=== PATIENT | male | born 1935 | race Caucasian/White ===

== ENCOUNTER 2017-05-22 09:50 | Emergency (ER) | payer MEDICARE, BC ==
[~2017-05-22] VITALS: Ht 180.3 cm; Wt 94.0 kg
[~2017-05-22 09:50] MED LIST: ASPI-845 PO; ATOR10TA70 PO; CALC667C5 PO; CARV3.122 PO; FLO0.4C PO; FOLI0.8T19 PO; GABA-530 PO; IPRA3AMP IH; ISOS30TA6 PO; LACT10SO6 PO; LEVO112T5 PO; MULT1TAB74 PO; OMEP10CA4 PO; SENN-161 PO; SEVE800T8 PO; SPIIN IH; TORS20TA3 PO; TRAZ-143 PO
[2017-05-22 11:36] VITALS: BP 147/82
== END 2017-05-22 11:38 | disposition home or self-care (01) ==
LOC: ER 09:51
DX: I13.2 Hypertensive heart and chronic kidney disease with heart failure and with stage 5 chronic kidney disease, or end stage renal disease (principal); N18.6 End stage renal disease; I50.9 Heart failure, unspecified; T83.9XXA Unspecified complication of genitourinary prosthetic device, implant and graft, initial encounter; J44.9 Chronic obstructive pulmonary disease, unspecified; Z79.82 Long term (current) use of aspirin
CPT/HCPCS: 99284

== ENCOUNTER 2017-09-08 11:08 | Inpatient (IN) | payer MEDICARE, BC ==
[~2017-09-08] VITALS: Ht 180.3 cm; Wt 91.0 kg
[2017-09-08 11:43] LABS: BASOPHILS % (AUTO) 0.2 % (0-1); EOSINOPHILS # (AUTO) 0.5 X10'3 (0-0.9); EOSINOPHILS % (AUTO) 5.8 % (0-6); HEMOGLOBIN 11.3 g/dl (14.0-17.9); LYMPHOCYTES # (AUTO) 0.7 X10'3 (1.1-4.8); LYMPHOCYTES % (AUTO) 7.9 % (21-51); MEAN CORPUSCULAR HEMOGLOBIN 32.9 PG (27.0-31.0); MEAN CORPUSCULAR HGB CONC 33.3 % (33.0-36.5); MEAN CORPUSCULAR VOLUME 98.7 FL (78-98); MEAN PLATELET VOLUME 6.2 FL (7.4-10.4); MONOCYTES # (AUTO) 0.5 X10'3 (0-0.9); MONOCYTES % (AUTO) 6.3 % (2-12); NEUTROPHILS % (AUTO) 79.8 % (42-75); PLATELET COUNT 283 X10'3 (140-440); RED BLOOD COUNT 3.45 X10'6 (4.70-6.10); RED CELL DISTRIBUTION WIDTH 14.8 % (11.5-14.5); WHITE BLOOD COUNT 8.7 X10'3 (4.5-11.0)
[2017-09-08 11:53] LABS: PARTIAL THROMBOPLASTIN TIME 33 SECONDS (22-32); PROTHROMBIN TIME 10.3 SECONDS (9.0-12.0)
[2017-09-08 12:05] LABS: ALANINE AMINOTRANSFERASE 17 U/L (12-78); ALBUMIN 3.1 G/DL (3.4-5.0); ALBUMIN/GLOBULIN RATIO 0.7 (1.1-1.5); ALKALINE PHOSPHATASE 55 IU/L (46-116); ANION GAP 12 (8-16); ASPARTATE AMINO TRANSFERASE 16 U/L (10-37); BILIRUBIN,TOTAL 0.3 MG/DL (0.1-1.0); BLOOD UREA NITROGEN 38 MG/DL (7-18); BUN/CREATININE RATIO 7.6 (5.4-32.0); CALCIUM 8.4 MG/DL (8.5-10.1); CHLORIDE 98 MMOL/L (99-107); CREATININE 4.98 MG/DL (0.60-1.10); GLUCOSE 90 MG/DL (70-104); POTASSIUM 4.8 MMOL/L (3.5-5.1); SODIUM 136 MMOL/L (135-145); TOTAL CARBON DIOXIDE 26.1 MMOL/L (24-32); TOTAL PROTEIN 7.6 G/DL (6.4-8.2); TROPONIN I < 0.04 NG/ML (0.0-0.05); eGFR 11 ML/MIN
[2017-09-08 14:08] LABS: CLARITY,URINE CLOUDY (Clear); COLOR,URINE YELLOW (Yellow); GLUCOSE, URINE NEGATIVE (Neg); KETONES,URINE NEGATIVE (Neg); LEUKOCYTE ESTERASE ,URINE LARGE (Neg); NITRITES, URINE NEGATIVE (Neg); OCCULT BLOOD,URINE NEGATIVE (Neg); PH,URINE 7.5 (4.8-8.0); PROTEIN,URINE 100 mg/dl (Neg); UROBILINOGEN,URINE 0.2 E.U/dL (0.2-1.0)
[2017-09-08 14:13] LABS: UA COLLECTION TYPE STRAIGHT CATH
[2017-09-08 14:14] LABS: BACTERIA,URINE 4+ /HPF (Neg); MUCUS STRANDS NONE SEEN /LPF (Neg); RBC,URINE NONE SEEN /HPF (0-2); SQUAMOUS EPITHELIAL CELL,UR NONE SEEN /LPF (FEW); WBC,URINE 50-100 /HPF (0-4)
[2017-09-08] MEDS ORDERED: ondansetron/PF 4mg/2ml inj IV PRN (15:20)
[2017-09-08] MEDS ORDERED: acetaminophen 325mg tablet PO PRN (15:20)
[2017-09-08] MEDS ORDERED: mag hydrox/Alum hydrox/simeth 30ml oral suspension PO PRN (15:20)
[2017-09-08 17:50] VITALS: BP 174/76
[2017-09-08] MEDS: calcium acetate 667mg (PhosLO) capsule PO SCH (21:45)
[2017-09-08] MEDS: carVEDilol 3.125mg tablet PO SCH (21:45)
[2017-09-09 02:00] VITALS: BP 116/68
[2017-09-09] MEDS: ipratropium/albuterol 3ml nebule IH SCH ×5 (04:25→20:05)
[2017-09-09 06:00] VITALS: BP 157/63
[2017-09-09 06:36] LABS: BASOPHILS % (AUTO) 0.3 % (0-1); EOSINOPHILS # (AUTO) 0.8 X10'3 (0-0.9); EOSINOPHILS % (AUTO) 10.6 % (0-6); HEMATOCRIT 36.1 % (42.0-52.0); LYMPHOCYTES # (AUTO) 0.7 X10'3 (1.1-4.8); LYMPHOCYTES % (AUTO) 8.8 % (21-51); MEAN CORPUSCULAR HGB CONC 33.2 % (33.0-36.5); MEAN CORPUSCULAR VOLUME 99.4 FL (78-98); MEAN PLATELET VOLUME 6.3 FL (7.4-10.4); MONOCYTES # (AUTO) 0.6 X10'3 (0-0.9); MONOCYTES % (AUTO) 7.4 % (2-12); NEUTROPHILS # (AUTO) 5.8 X10'3 (1.8-7.7); NEUTROPHILS % (AUTO) 72.9 % (42-75); PLATELET COUNT 322 X10'3 (140-440); RED BLOOD COUNT 3.64 X10'6 (4.70-6.10); RED CELL DISTRIBUTION WIDTH 14.5 % (11.5-14.5); WHITE BLOOD COUNT 7.9 X10'3 (4.5-11.0)
[2017-09-09 07:10] LABS: ALANINE AMINOTRANSFERASE 15 U/L (12-78); ALBUMIN 2.7 G/DL (3.4-5.0); ALBUMIN/GLOBULIN RATIO 0.7 (1.1-1.5); ALKALINE PHOSPHATASE 54 IU/L (46-116); ANION GAP 9 (8-16); ASPARTATE AMINO TRANSFERASE 17 U/L (10-37); BILIRUBIN,TOTAL 0.3 MG/DL (0.1-1.0); BLOOD UREA NITROGEN 42 MG/DL (7-18); BUN/CREATININE RATIO 8.2 (5.4-32.0); CALCIUM 8.4 MG/DL (8.5-10.1); CHLORIDE 99 MMOL/L (99-107); CHOLESTEROL 102 MG/DL (0-200); CREATININE 5.12 MG/DL (0.60-1.10); GLUCOSE 82 MG/DL (70-104); HDL CHOLESTEROL 51 MG/DL (35-60); LDL CHOLESTEROL 34 MG/DL (50-100); PHOSPHORUS 5.5 MG/DL (2.3-4.5); SODIUM 137 MMOL/L (135-145); TOTAL CARBON DIOXIDE 29.1 MMOL/L (24-32); TOTAL PROTEIN 6.7 G/DL (6.4-8.2); TRIGLYCERIDES 65 MG/DL (20-135); eGFR 11 ML/MIN
[2017-09-09 07:11] LABS: POTASSIUM 5.3 MMOL/L (3.5-5.1)
[2017-09-09] MEDS ORDERED: LIDOcaine 1% (10mg/ml) 2ml vial SQ ONE (08:00)
[2017-09-09] MEDS: calcium acetate 667mg (PhosLO) capsule PO SCH ×3 (08:00→18:29)
[2017-09-09] MEDS ORDERED: epoetin 20,000 units/ml inj IV ONE ×2 (08:00→11:30)
[2017-09-09] MEDS ORDERED: normal saline 1000ml 250 ML IV PRN (08:00)
[2017-09-09] MEDS ORDERED: normal saline 1000ml 100 ML IV PRN (08:00)
[2017-09-09 10:00] VITALS: BP 149/63
[2017-09-09] MEDS ORDERED: heparin 1,000unit/ml 10ml vial 10 ML IV ONE (11:26)
[2017-09-09] MEDS ORDERED: albumin (human) 25% 100ml IV 100 ML IV PRN (11:30)
[2017-09-09] MEDS: folic acid/vitamin B complex w/vitamin C 0.8mg tablet PO SCH (11:33)
[2017-09-09] MEDS: levoTHYROXINE 112mcg tablet PO SCH (11:33)
[2017-09-09] MEDS: carVEDilol 3.125mg tablet PO SCH ×2 (11:33→19:57)
[2017-09-09] MEDS: aspirin 325mg tablet, delayed-release (Ecotrin) PO SCH (11:33)
[2017-09-09] MEDS: atorvastatin 10mg tablet PO SCH (11:34)
[2017-09-09] MEDS: isosorbide mononitrate 30mg tab.SR.24H PO SCH (11:41)
[2017-09-09] MEDS: pantoprazole 40 MG vial IV SCH (12:48)
[2017-09-09] MEDS ORDERED: VALA100027 (13:41)
[2017-09-09 18:00] VITALS: BP 128/58
[2017-09-09 23:00] VITALS: BP 153/45
[2017-09-10 02:00] VITALS: BP 150/57
[2017-09-10 05:52] LABS: BASOPHILS % (AUTO) 0.3 % (0-1); EOSINOPHILS # (AUTO) 0.7 X10'3 (0-0.9); EOSINOPHILS % (AUTO) 9.5 % (0-6); HEMATOCRIT 33.3 % (42.0-52.0); HEMOGLOBIN 10.9 g/dl (14.0-17.9); LYMPHOCYTES # (AUTO) 0.8 X10'3 (1.1-4.8); LYMPHOCYTES % (AUTO) 9.7 % (21-51); MEAN CORPUSCULAR HEMOGLOBIN 32.3 PG (27.0-31.0); MEAN CORPUSCULAR HGB CONC 32.8 % (33.0-36.5); MEAN CORPUSCULAR VOLUME 98.5 FL (78-98); MEAN PLATELET VOLUME 6.4 FL (7.4-10.4); MONOCYTES # (AUTO) 0.6 X10'3 (0-0.9); MONOCYTES % (AUTO) 8.2 % (2-12); NEUTROPHILS # (AUTO) 5.7 X10'3 (1.8-7.7); NEUTROPHILS % (AUTO) 72.3 % (42-75); PLATELET COUNT 316 X10'3 (140-440); RED BLOOD COUNT 3.38 X10'6 (4.70-6.10); RED CELL DISTRIBUTION WIDTH 14.6 % (11.5-14.5); WHITE BLOOD COUNT 7.9 X10'3 (4.5-11.0)
[2017-09-10 06:00] VITALS: BP 145/53
[2017-09-10 06:13] LABS: ALANINE AMINOTRANSFERASE 15 U/L (12-78); ALBUMIN 2.6 G/DL (3.4-5.0); ALBUMIN/GLOBULIN RATIO 0.7 (1.1-1.5); ALKALINE PHOSPHATASE 48 IU/L (46-116); ANION GAP 6 (8-16); BILIRUBIN,TOTAL 0.4 MG/DL (0.1-1.0); BLOOD UREA NITROGEN 29 MG/DL (7-18); BUN/CREATININE RATIO 7.3 (5.4-32.0); CALCIUM 8.2 MG/DL (8.5-10.1); CHLORIDE 100 MMOL/L (99-107); CREATININE 3.99 MG/DL (0.60-1.10); GLUCOSE 86 MG/DL (70-104); MAGNESIUM 1.9 MG/DL (1.5-2.4); SODIUM 137 MMOL/L (135-145); TOTAL CARBON DIOXIDE 31.5 MMOL/L (24-32); TOTAL PROTEIN 6.4 G/DL (6.4-8.2); eGFR 14 ML/MIN
[2017-09-10 06:15] LABS: ASPARTATE AMINO TRANSFERASE 21 U/L (10-37); PHOSPHORUS 4.2 MG/DL (2.3-4.5); POTASSIUM 4.6 MMOL/L (3.5-5.1)
[2017-09-10] MEDS ORDERED: piperacillin-tazo 2.25gm/50ml 50 ML IV SCH (08:00)
[2017-09-10] MEDS: isosorbide mononitrate 30mg tab.SR.24H PO SCH (08:00)
[2017-09-10] MEDS: ipratropium/albuterol 3ml nebule IH SCH ×4 (08:00→20:04)
[2017-09-10] MEDS: pantoprazole 40 MG vial IV SCH (09:30)
[2017-09-10] MEDS: carVEDilol 3.125mg tablet PO SCH ×2 (09:31→20:44)
[2017-09-10] MEDS: aspirin 325mg tablet, delayed-release (Ecotrin) PO SCH (09:31)
[2017-09-10] MEDS: calcium acetate 667mg (PhosLO) capsule PO SCH ×3 (09:31→18:50)
[2017-09-10] MEDS: atorvastatin 10mg tablet PO SCH (09:31)
[2017-09-10] MEDS: levoTHYROXINE 112mcg tablet PO SCH (09:31)
[2017-09-10] MEDS: folic acid/vitamin B complex w/vitamin C 0.8mg tablet PO SCH (09:31)
[2017-09-10] MEDS ORDERED: levoFLOXACIN 250mg tablet PO ONE (09:55)
[2017-09-10 10:00] VITALS: BP 155/59
[2017-09-10] MEDS: levoFLOXACIN 250mg tablet PO SCH (13:33)
[2017-09-10] MEDS: magnesium hydroxide 30ml (MOM) UD suspension PO PRN (13:39)
[2017-09-10 18:00] VITALS: BP 175/93
[2017-09-10 23:00] VITALS: BP 164/67
[2017-09-11] VITALS (7 sets, daily range): BP systolic 134–158; BP diastolic 61–76
[2017-09-11] MEDS: magnesium hydroxide 30ml (MOM) UD suspension PO PRN (05:37)
[2017-09-11 06:17] LABS: BASOPHILS % (AUTO) 0.4 % (0-1); EOSINOPHILS # (AUTO) 0.7 X10'3 (0-0.9); EOSINOPHILS % (AUTO) 9.5 % (0-6); HEMATOCRIT 33.7 % (42.0-52.0); HEMOGLOBIN 11.2 g/dl (14.0-17.9); LYMPHOCYTES # (AUTO) 0.9 X10'3 (1.1-4.8); LYMPHOCYTES % (AUTO) 10.9 % (21-51); MEAN CORPUSCULAR HEMOGLOBIN 32.9 PG (27.0-31.0); MEAN CORPUSCULAR HGB CONC 33.2 % (33.0-36.5); MEAN CORPUSCULAR VOLUME 99.1 FL (78-98); MEAN PLATELET VOLUME 6.4 FL (7.4-10.4); MONOCYTES # (AUTO) 0.7 X10'3 (0-0.9); MONOCYTES % (AUTO) 9.5 % (2-12); NEUTROPHILS # (AUTO) 5.5 X10'3 (1.8-7.7); NEUTROPHILS % (AUTO) 69.7 % (42-75); PLATELET COUNT 310 X10'3 (140-440); RED CELL DISTRIBUTION WIDTH 14.4 % (11.5-14.5); WHITE BLOOD COUNT 7.8 X10'3 (4.5-11.0)
[2017-09-11 06:47] LABS: ALANINE AMINOTRANSFERASE 15 U/L (12-78); ALBUMIN 2.7 G/DL (3.4-5.0); ALBUMIN/GLOBULIN RATIO 0.7 (1.1-1.5); ALKALINE PHOSPHATASE 46 IU/L (46-116); ANION GAP 8 (8-16); ASPARTATE AMINO TRANSFERASE 16 U/L (10-37); BILIRUBIN,TOTAL 0.3 MG/DL (0.1-1.0); BLOOD UREA NITROGEN 43 MG/DL (7-18); CALCIUM 8.3 MG/DL (8.5-10.1); CHLORIDE 99 MMOL/L (99-107); CREATININE 4.76 MG/DL (0.60-1.10); GLUCOSE 88 MG/DL (70-104); MAGNESIUM 2.3 MG/DL (1.5-2.4); PHOSPHORUS 4.1 MG/DL (2.3-4.5); POTASSIUM 4.8 MMOL/L (3.5-5.1); SODIUM 135 MMOL/L (135-145); TOTAL CARBON DIOXIDE 28.4 MMOL/L (24-32); TOTAL PROTEIN 6.6 G/DL (6.4-8.2); eGFR 12 ML/MIN
[2017-09-11] MEDS ORDERED: heparin 1,000 units/ml 10ml inj IV ONE (08:00)
[2017-09-11] MEDS ORDERED: epoetin 20,000 units/ml inj IV ONE (08:00)
[2017-09-11] MEDS ORDERED: albumin (human) 25% 100ml IV 100 ML IV PRN (08:00)
[2017-09-11] MEDS ORDERED: heparin 1,000unit/ml 10ml vial 10 ML IV ONE (08:00)
[2017-09-11] MEDS: aspirin 325mg tablet, delayed-release (Ecotrin) PO SCH (08:32)
[2017-09-11] MEDS: levoTHYROXINE 112mcg tablet PO SCH (08:32)
[2017-09-11] MEDS: pantoprazole 40mg Tablet.DR PO SCH (08:32)
[2017-09-11] MEDS: folic acid/vitamin B complex w/vitamin C 0.8mg tablet PO SCH (08:32)
[2017-09-11] MEDS: calcium acetate 667mg (PhosLO) capsule PO SCH ×3 (08:32→18:42)
[2017-09-11] MEDS: isosorbide mononitrate 30mg tab.SR.24H PO SCH (08:32)
[2017-09-11] MEDS: carVEDilol 3.125mg tablet PO SCH ×2 (08:32→18:42)
[2017-09-11] MEDS: atorvastatin 10mg tablet PO SCH (08:32)
[2017-09-11] MEDS: ipratropium/albuterol 3ml nebule IH SCH ×4 (09:12→22:48)
[2017-09-11] MEDS ORDERED: LIDOcaine 1% (10mg/ml) 2ml vial SQ ONE (09:35)
[2017-09-11] MEDS: lactobacillus rhamnosus 10,000 MMU CELLS/CAPSULE PO SCH (18:42)
[2017-09-12] MEDS ORDERED: diphenhydrAMINE 50 mg/ml inj IV ONE
[2017-09-12 05:42] LABS: BASOPHILS % (AUTO) 0.4 % (0-1); EOSINOPHILS # (AUTO) 0.7 X10'3 (0-0.9); EOSINOPHILS % (AUTO) 8.1 % (0-6); HEMATOCRIT 34.6 % (42.0-52.0); HEMOGLOBIN 11.6 g/dl (14.0-17.9); LYMPHOCYTES # (AUTO) 0.9 X10'3 (1.1-4.8); LYMPHOCYTES % (AUTO) 9.9 % (21-51); MEAN CORPUSCULAR HGB CONC 33.5 % (33.0-36.5); MEAN CORPUSCULAR VOLUME 98.6 FL (78-98); MEAN PLATELET VOLUME 6.5 FL (7.4-10.4); MONOCYTES # (AUTO) 0.8 X10'3 (0-0.9); MONOCYTES % (AUTO) 8.9 % (2-12); NEUTROPHILS # (AUTO) 6.7 X10'3 (1.8-7.7); NEUTROPHILS % (AUTO) 72.7 % (42-75); PLATELET COUNT 300 X10'3 (140-440); RED BLOOD COUNT 3.51 X10'6 (4.70-6.10); RED CELL DISTRIBUTION WIDTH 14.4 % (11.5-14.5); WHITE BLOOD COUNT 9.2 X10'3 (4.5-11.0)
[2017-09-12 06:00] VITALS: BP 146/60
[2017-09-12 06:11] LABS: ALANINE AMINOTRANSFERASE 16 U/L (12-78); ALBUMIN 2.9 G/DL (3.4-5.0); ALBUMIN/GLOBULIN RATIO 0.7 (1.1-1.5); ALKALINE PHOSPHATASE 48 IU/L (46-116); ANION GAP 7 (8-16); ASPARTATE AMINO TRANSFERASE 16 U/L (10-37); BILIRUBIN,TOTAL 0.4 MG/DL (0.1-1.0); BLOOD UREA NITROGEN 30 MG/DL (7-18); BUN/CREATININE RATIO 8.2 (5.4-32.0); CALCIUM 8.6 MG/DL (8.5-10.1); CHLORIDE 99 MMOL/L (99-107); CREATININE 3.67 MG/DL (0.60-1.10); GLUCOSE 85 MG/DL (70-104); MAGNESIUM 2.3 MG/DL (1.5-2.4); PHOSPHORUS 3.6 MG/DL (2.3-4.5); POTASSIUM 4.4 MMOL/L (3.5-5.1); SODIUM 137 MMOL/L (135-145); TOTAL CARBON DIOXIDE 31.5 MMOL/L (24-32); TOTAL PROTEIN 6.8 G/DL (6.4-8.2); eGFR 16 ML/MIN
[2017-09-12 06:57] VITALS: BP 167/66
[2017-09-12] MEDS: ipratropium/albuterol 3ml nebule IH SCH ×2 (08:00→11:47)
[2017-09-12] MEDS: lactobacillus rhamnosus 10,000 MMU CELLS/CAPSULE PO SCH (08:07)
[2017-09-12] MEDS: carVEDilol 3.125mg tablet PO SCH (08:08)
[2017-09-12] MEDS: pantoprazole 40mg Tablet.DR PO SCH (08:09)
[2017-09-12] MEDS: folic acid/vitamin B complex w/vitamin C 0.8mg tablet PO SCH (08:09)
[2017-09-12] MEDS: levoTHYROXINE 112mcg tablet PO SCH (08:10)
[2017-09-12] MEDS: calcium acetate 667mg (PhosLO) capsule PO SCH (08:10)
[2017-09-12] MEDS: aspirin 325mg tablet, delayed-release (Ecotrin) PO SCH (08:10)
[2017-09-12] MEDS: atorvastatin 10mg tablet PO SCH (08:11)
[2017-09-12] MEDS: isosorbide mononitrate 30mg tab.SR.24H PO SCH (08:11)
[2017-09-12] MEDS ORDERED: LEVO250T58 PO (09:23)
[2017-09-12] MEDS ORDERED: COR3.125T PO (09:23)
[2017-09-12] MEDS ORDERED: CLOP75TA15 PO (09:24)
[2017-09-12] MEDS ORDERED: clopidogrel 75mg tablet PO SCH (09:25)
[2017-09-12 10:00] VITALS: BP 162/70
[2017-09-12] MEDS: levoFLOXACIN 250mg tablet PO SCH (10:52)
== END 2017-09-12 12:40 | disposition home or self-care (01) | DRG 64 ==
LOC: ER 11:09 → ED HOLD 15:18 → ORTHO 4S 17:45
PROVIDERS: ATTEND Internal Medicine Critical Care Medicine
PROC: 5A1D70Z Performance of Urinary Filtration, Intermittent, Less than 6 Hours Per Day (ICD-10-PCS; principal; 2017-09-09)
PROC: 5A1D70Z Performance of Urinary Filtration, Intermittent, Less than 6 Hours Per Day (ICD-10-PCS; 2017-09-11)
DX: I63.9 Cerebral infarction, unspecified (principal); N18.6 End stage renal disease; I13.2 Hypertensive heart and chronic kidney disease with heart failure and with stage 5 chronic kidney disease, or end stage renal disease; J44.9 Chronic obstructive pulmonary disease, unspecified; N39.0 Urinary tract infection, site not specified; I50.9 Heart failure, unspecified; Z16.12 Extended spectrum beta lactamase (ESBL) resistance; W18.39XA Other fall on same level, initial encounter; Z99.2 Dependence on renal dialysis; Z79.82 Long term (current) use of aspirin; Z79.899 Other long term (current) drug therapy; Z80.9 Family history of malignant neoplasm, unspecified; Y92.89 Other specified places as the place of occurrence of the external cause; Y93.01 Activity, walking, marching and hiking; Y99.8 Other external cause status
CPT/HCPCS: 36415; 70450; 70551; 71045; 80053; 80061; 81001; 82948; 83735; 84100; 84443; 84484; 85025; 85610; 85730; 87070; 87077; 87088; 87186; 92507; 92616; 93005; 93308; 93880; 94640; 94760; 97116; 97162; 97530; 99285; A4353; A6402; C9113; G0257; J0885; J1200; J1644; J2543; J3490; J7030

== ENCOUNTER 2017-11-13 10:53 | Day surgery (SDC) | payer MEDICARE, BC ==
[~2017-11-13] VITALS: Ht 175.3 cm; Wt 92.1 kg
[2017-11-13] VITALS (7 sets, daily range): BP systolic 132–152; BP diastolic 63–76
[~2017-11-13 10:53] MED LIST changes: -CARV3.122 PO; +CLOP75TA15 PO; +COR3.125T PO; +LEVO250T58 PO; -SEVE800T8 PO; +VALA100027
[2017-11-13] MEDS ORDERED: normal saline 1000ml 1,000 ML IV SCH ×2 (11:15→13:11)
[2017-11-13] MEDS ORDERED: FLO0.4C PO (11:42)
[2017-11-13] MEDS ORDERED: SEVE800T7 PO (11:42)
[2017-11-13 12:39] LABS: BASOPHILS % (AUTO) 0.1 % (0-1); EOSINOPHILS # (AUTO) 1.2 X10'3 (0-0.9); EOSINOPHILS % (AUTO) 12.5 % (0-6); HEMOGLOBIN 12.1 g/dl (14.0-17.9); LYMPHOCYTES # (AUTO) 0.5 X10'3 (1.1-4.8); LYMPHOCYTES % (AUTO) 5.2 % (21-51); MEAN CORPUSCULAR HEMOGLOBIN 33.3 PG (27.0-31.0); MEAN CORPUSCULAR HGB CONC 32.8 % (33.0-36.5); MEAN CORPUSCULAR VOLUME 101.7 FL (78-98); MEAN PLATELET VOLUME 6.4 FL (7.4-10.4); MONOCYTES # (AUTO) 0.9 X10'3 (0-0.9); NEUTROPHILS # (AUTO) 7.3 X10'3 (1.8-7.7); NEUTROPHILS % (AUTO) 73.2 % (42-75); PLATELET COUNT 346 X10'3 (140-440); RED BLOOD COUNT 3.64 X10'6 (4.70-6.10); RED CELL DISTRIBUTION WIDTH 15.6 % (11.5-14.5); WHITE BLOOD COUNT 9.9 X10'3 (4.5-11.0)
[2017-11-13] MEDS ORDERED: midazolam 2 mg/2 ml injection IV PRN (13:15)
[2017-11-13] MEDS ORDERED: LIDOcaine 1%/PF 5ML 10 MG/ML VIAL SQ ONE (13:15)
[2017-11-13] MEDS ORDERED: fentaNYL/PF 50MCG/1 ML 2ML syringe IV PRN (13:15)
[2017-11-13] MEDS ORDERED: heparin 1,000 UNITS/NS 500ml 500 ML ONE (13:43)
[2017-11-13] MEDS ORDERED: midazolam 2 mg/2 ml injection ONE (13:43)
[2017-11-13] MEDS ORDERED: fentaNYL/PF 50MCG/1 ML 2ML syringe ONE ×2 (13:43→14:17)
[2017-11-13] MEDS ORDERED: LIDOcaine 1%/PF 5ML 10 MG/ML VIAL ONE (13:43)
[2017-11-13] MEDS ORDERED: iohexol 300mg/ml 100ml inj. ONE (13:44)
== END 2017-11-13 17:35 | disposition home or self-care (01) ==
LOC: SSTAY O 10:53
PROVIDERS: ATTEND Radiology Diagnostic Radiology
DX: T82.858A Stenosis of other vascular prosthetic devices, implants and grafts, initial encounter (principal); I87.1 Compression of vein; I13.2 Hypertensive heart and chronic kidney disease with heart failure and with stage 5 chronic kidney disease, or end stage renal disease; N18.6 End stage renal disease; I50.9 Heart failure, unspecified; J44.9 Chronic obstructive pulmonary disease, unspecified; E78.5 Hyperlipidemia, unspecified; I45.19 Other right bundle-branch block; G47.33 Obstructive sleep apnea (adult) (pediatric); N40.0 Benign prostatic hyperplasia without lower urinary tract symptoms; Z86.73 Personal history of transient ischemic attack (TIA), and cerebral infarction without residual deficits; Z99.2 Dependence on renal dialysis; Z79.2 Long term (current) use of antibiotics; Z95.1 Presence of aortocoronary bypass graft; Z79.01 Long term (current) use of anticoagulants; Z87.891 Personal history of nicotine dependence; Z98.41 Cataract extraction status, right eye; Z98.42 Cataract extraction status, left eye; Z79.82 Long term (current) use of aspirin; Z79.891 Long term (current) use of opiate analgesic; Z86.14 Personal history of Methicillin resistant Staphylococcus aureus infection; Z90.79 Acquired absence of other genital organ(s); Z79.899 Other long term (current) drug therapy; Z98.890 Other specified postprocedural states; Y83.2 Surgical operation with anastomosis, bypass or graft as the cause of abnormal reaction of the patient, or of later complication, without mention of misadventure at the time of the procedure; Y92.89 Other specified places as the place of occurrence of the external cause
CPT/HCPCS: 36415; 36903; 85025; 99152; 99153; A6257; C1725; C1769; C1876; C1894; J1644; J2001; J2250; J3010; J7030; Q9967

== ENCOUNTER 2018-06-16 09:48 | Inpatient (IN) | payer MEDICARE, BC | END 2018-06-19 14:15 | disposition home or self-care (01) | LOC: ER 09:48 → ED HOLD 11:11 → PCU 3S 14:00 | DX: J18.9 Pneumonia, unspecified organism (principal); N18.6 End stage renal disease; J96.00 Acute respiratory failure, unspecified whether with hypoxia or hypercapnia; I13.2 Hypertensive heart and chronic kidney disease with heart failure and with stage 5 chronic kidney disease, or end stage renal disease ==

== ENCOUNTER 2018-07-08 15:34 | Emergency (ER) | payer MEDICARE, BC ==
[~2018-07-08] VITALS: Ht 177.8 cm; Wt 100.0 kg
[~2018-07-08 15:34] MED LIST changes: +CARV3.123 PO; -CLOP75TA15 PO; +CLOP75TA33 PO; -COR3.125T PO; -IPRA3AMP IH; +IPRA3AMP31 IH; +IPRA4AER IH; -SENN-161 PO; +SENN-162 PO; +SEVE800T7 PO; +TERA1CAP4 PO; -TORS20TA3 PO; -TRAZ-143 PO; +TRAZ-218 PO; -VALA100027
[2018-07-08 15:52] VITALS: BP 163/77
[2018-07-08] MEDS ORDERED: morphine 4 MG/ML inj SYRINge IV ONE (16:15)
[2018-07-08 16:59] LABS: BASOPHILS % (AUTO) 0 % (0-1); EOSINOPHILS # (AUTO) 0.1 X10'3 (0-0.9); EOSINOPHILS % (AUTO) 1.1 % (0-6); HEMATOCRIT 36.4 % (42.0-52.0); HEMOGLOBIN 11.6 g/dl (14.0-17.9); LYMPHOCYTES # (AUTO) 0.4 X10'3 (1.1-4.8); LYMPHOCYTES % (AUTO) 3.4 % (21-51); MEAN CORPUSCULAR HEMOGLOBIN 33.2 PG (27.0-31.0); MEAN CORPUSCULAR HGB CONC 31.9 g/dL (33.0-36.5); MEAN CORPUSCULAR VOLUME 104.1 FL (78-98); MEAN PLATELET VOLUME 7.1 FL (7.4-10.4); MONOCYTES # (AUTO) 0.5 X10'3 (0-0.9); MONOCYTES % (AUTO) 5.1 % (2-12); NEUTROPHILS # (AUTO) 9.3 X10'3 (1.8-7.7); NEUTROPHILS % (AUTO) 90.4 % (42-75); PLATELET COUNT 275 X10'3 (140-440); RED CELL DISTRIBUTION WIDTH 16.6 % (11.5-14.5); WHITE BLOOD COUNT 10.3 X10'3 (4.5-11.0)
[2018-07-08 17:37] LABS: ALANINE AMINOTRANSFERASE 13 U/L (12-78); ALBUMIN 3.1 G/DL (3.4-5.0); ALBUMIN/GLOBULIN RATIO 0.8 (1.1-1.5); ALKALINE PHOSPHATASE 65 IU/L (46-116); ANION GAP 11 (8-16); ASPARTATE AMINO TRANSFERASE 17 U/L (10-37); BILIRUBIN,TOTAL 0.4 MG/DL (0.1-1.0); BLOOD UREA NITROGEN 58 MG/DL (7-18); BUN/CREATININE RATIO 7.7 (5.4-32.0); CALCIUM 8.2 MG/DL (8.5-10.1); CHLORIDE 96 MMOL/L (99-107); CREATININE 7.53 MG/DL (0.60-1.10); GLUCOSE 88 MG/DL (70-104); SODIUM 133 MMOL/L (135-145); TOTAL CARBON DIOXIDE 26.5 MMOL/L (24-32); TOTAL PROTEIN 7.2 G/DL (6.4-8.2); eGFR 7 ML/MIN
[2018-07-08 17:39] LABS: POTASSIUM 6.2 MMOL/L (3.5-5.1)
--- NOTE | 2018-07-08 17:40 | NUR ---
K 6.2 REPORTED TO BARBARA WATTERS
--- NOTE | 2018-07-08 20:10 | NUR ---
PER BARBARA, NOT GOING TO TREAT THE K OF 6.2. PT GOING TO DIALYSIS TOMORROW.
== END 2018-07-08 21:05 | disposition home or self-care (01) ==
LOC: ER 15:34
DX: S70.01XA Contusion of right hip, initial encounter (principal); I13.2 Hypertensive heart and chronic kidney disease with heart failure and with stage 5 chronic kidney disease, or end stage renal disease; N18.6 End stage renal disease; I50.9 Heart failure, unspecified; J44.9 Chronic obstructive pulmonary disease, unspecified; Z98.890 Other specified postprocedural states; Z79.82 Long term (current) use of aspirin; Z99.2 Dependence on renal dialysis; Z99.81 Dependence on supplemental oxygen; Z79.899 Other long term (current) drug therapy; W07.XXXA Fall from chair, initial encounter; Y93.89 Activity, other specified; Y92.098 Other place in other non-institutional residence as the place of occurrence of the external cause; Y99.9 Unspecified external cause status
CPT/HCPCS: 36415; 71045; 72192; 73502; 73551; 80053; 85025; 86885; 86900; 86901; 93005; 96374; 99284; J2270

== ENCOUNTER 2019-01-30 09:53 | Inpatient (IN) | payer MEDICARE, BC ==
[2019-01-30] VITALS (8 sets, daily range): BP systolic 118–155; BP diastolic 46–90
[~2019-01-30] VITALS: Ht 177.8 cm; Wt 90.1 kg
[~2019-01-30 09:53] MED LIST changes: -IPRA3AMP31 IH; +IPRA3AMP31 NEB; +LACT10SO57 PO; -LACT10SO6 PO; -OMEP10CA4 PO; +OMEP10CA5 PO; -TRAZ-218 PO; +TRAZ-251 PO
[2019-01-30] MEDS ORDERED: heparin 1,000 units/ml 10ml inj IV ONE (10:05)
[2019-01-30] MEDS ORDERED: bisacodyl 10mg suppository rectal RC PRN (10:05)
[2019-01-30] MEDS ORDERED: acetaminophen 325mg tablet PO PRN ×2 (10:05)
[2019-01-30] MEDS ORDERED: heparin 1,000unit/ml 10ml vial 10 ML IV ONE (10:05)
[2019-01-30] MEDS ORDERED: ondansetron/PF 4mg/2ml inj IV PRN (10:05)
[2019-01-30] MEDS ORDERED: albumin (human) 25% 100ml IV 100 ML IV PRN (10:05)
[2019-01-30] MEDS ORDERED: epoetin 20,000 units/ml inj IV ONE (10:05)
--- NOTE | 2019-01-30 11:00 | NUR ---
PT RECEIVED BY WALLACE FROM [facility] AFTER BRIEF STOP THROUGH ER. PT AWAKE AND ALERT, ORIENTED. SATS 98 ON 3L- USES O2 AT HOME ON SAME LITER FLOW. VSS
[2019-01-30 11:21] LABS: BASOPHILS # (AUTO) 0.1 X10'3 (0-0.2); BASOPHILS % (AUTO) 0.7 % (0-1); EOSINOPHILS # (AUTO) 0.1 X10'3 (0-0.9); EOSINOPHILS % (AUTO) 1.4 % (0-6); HEMATOCRIT 33.1 % (42.0-52.0); HEMOGLOBIN 10.6 g/dl (14.0-17.9); LYMPHOCYTES # (AUTO) 0.4 X10'3 (1.1-4.8); LYMPHOCYTES % (AUTO) 4.8 % (21-51); MEAN CORPUSCULAR VOLUME 103.2 FL (78-98); MEAN PLATELET VOLUME 6.5 FL (7.4-10.4); MONOCYTES # (AUTO) 0.5 X10'3 (0-0.9); MONOCYTES % (AUTO) 6.8 % (2-12); NEUTROPHILS # (AUTO) 6.8 X10'3 (1.8-7.7); NEUTROPHILS % (AUTO) 86.3 % (42-75); PLATELET COUNT 197 X10'3 (140-440); RED BLOOD COUNT 3.21 X10'6 (4.70-6.10); RED CELL DISTRIBUTION WIDTH 16.9 % (11.5-14.5); WHITE BLOOD COUNT 7.8 X10'3 (4.5-11.0)
--- NOTE | 2019-01-30 11:30 | NUR ---
DR CLANCY HERE- 3L TAKEN OFF BY NICK, NOW WILL REMOVE MORE.
[2019-01-30 11:33] LABS: PARTIAL THROMBOPLASTIN TIME 33 SECONDS (22-32)
[2019-01-30] MEDS ORDERED: GUAI600T45 PO (11:37)
[2019-01-30] MEDS ORDERED: PHO667C PO (11:37)
[2019-01-30] MEDS ORDERED: METO25TA6 PO (11:37)
[2019-01-30] MEDS ORDERED: VIT1TABL48 PO (11:37)
[2019-01-30] MEDS ORDERED: FURO-149 PO (11:37)
[2019-01-30] MEDS ORDERED: FINA5TAB11 PO (11:37)
[2019-01-30] MEDS ORDERED: ZAR2.5T PO (11:37)
[2019-01-30] MEDS ORDERED: OMEP20TA5 PO (11:37)
[2019-01-30 11:44] LABS: ALANINE AMINOTRANSFERASE 6 U/L (12-78); ALBUMIN 2.8 G/DL (3.4-5.0); ALBUMIN/GLOBULIN RATIO 0.8 (1.1-1.5); ALKALINE PHOSPHATASE 53 IU/L (46-116); ANION GAP 6 (8-16); ASPARTATE AMINO TRANSFERASE 8 U/L (10-37); BILIRUBIN,TOTAL 0.3 MG/DL (0.1-1.0); BLOOD UREA NITROGEN 17 MG/DL (7-18); BUN/CREATININE RATIO 6.1 (5.4-32.0); CHLORIDE 100 MMOL/L (99-107); CREATININE 2.79 MG/DL (0.60-1.10); GLUCOSE 111 MG/DL (70-104); MAGNESIUM 2.1 MG/DL (1.5-2.4); PHOSPHORUS 2.7 MG/DL (2.3-4.5); POTASSIUM 3.9 MMOL/L (3.5-5.1); SODIUM 136 MMOL/L (135-145); TOTAL PROTEIN 6.5 G/DL (6.4-8.2); eGFR 22 ML/MIN
--- NOTE | 2019-01-30 14:59 | NUR ---
PT COMPLETED HD- TAKING OFF 3 LITERS- TOLERATED WELL. ATE LUNCH WELL. DIFFICULTY WITH IV, BUT PICC NURSE PLACED EXTENDED RT ARM
[2019-01-30] MEDS ORDERED: albuterol 2.5 MG/3 ML nebule NEB PRN (15:15)
[2019-01-30] MEDS ORDERED: lactulose 20gm/30ml cup PO PRN (16:00)
[2019-01-30] MEDS ORDERED: guaiFENesin ER 600mg tablet PO PRN (16:00)
--- NOTE | 2019-01-30 17:07 | NUR ---
Patient in room ICU 2044. I have received report from HUMAIRA Disla and had the opportunity to ask questions and assume patient care.
--- NOTE | 2019-01-30 17:13 | NUR ---
Patient arrived to the unit accompanied by SORTING MACHINE OPERATOR. Telemetry monitoring continued, vital signs obtained, belongings placed on bedside dresser, and patient oriented to room and call light. Will continue to monitor.
--- NOTE | 2019-01-30 17:15 | NUR ---
REPORT GIVEN, PT AWAKEN FOR TRANSFER- PT DISORIENTED, IRRITABLE. LOOSE SOUNDING COUGH- ENCOURAGED TO COUGH- DID SO, NOMPRODUCTIVE. REORIENTED. TRANSFERRED BY BED TO 3012B. STOOD AND AMBULATED TO BED- TOLERATED WELL. NO VOID, NO DISCOMFORT- STATES HE DOES VOID AT TIMES.
[2019-01-30] MEDS: calcium acetate 667mg (PhosLO) capsule PO SCH (18:00)
--- NOTE | 2019-01-30 18:17 | NUR ---
Problems reprioritized. Patient report given, questions answered & plan of care reviewed with Kevon GERARDO. Patient stable at transfer of care, resting comfortably in bed.
--- NOTE | 2019-01-30 18:17 | NUR ---
Patient in room PCU 3012B. I have received report from HUMAIRA Arana and had the opportunity to ask questions and assume patient care. Pt is resting comfortably, A&O X 4, explained to pt need to collect urine and sputum.
[2019-01-30] MEDS: ipratropium/albuterol 3ml nebule NEB SCH (20:19)
[2019-01-30] MEDS ORDERED: gabapentin 100mg capsule PO SCH (21:00)
[2019-01-30] MEDS: tamsulosin 0.4mg capsule PO SCH (21:25)
[2019-01-30] MEDS: gabapentin 100mg capsule PO SCH (21:25)
[2019-01-30] MEDS: furosemide 40mg tablet PO SCH (21:25)
[2019-01-30] MEDS: metoprolol tartrate 25mg tablet PO SCH (21:26)
[2019-01-30] MEDS: docusate sod 100mg capsule PO SCH (21:26)
[2019-01-30] MEDS: heparin, porcine 5000 units/ml vial SQ SCH (21:27)
[2019-01-30] MEDS: metolazone 2.5mg tablet PO SCH (21:48)
--- NOTE | 2019-01-31 01:42 | NUR ---
Patient states that he had a past history of diabetes. Consulted with roofing superintendent and she said that Accucheck every 6 hours was not necessary
[2019-01-31 02:00] VITALS: BP 128/52
[2019-01-31 06:00] VITALS: BP 139/50
[2019-01-31 06:19] LABS: BASOPHILS % (AUTO) 0.5 % (0-1); EOSINOPHILS # (AUTO) 0.2 X10'3 (0-0.9); EOSINOPHILS % (AUTO) 2.5 % (0-6); HEMATOCRIT 30.6 % (42.0-52.0); HEMOGLOBIN 9.9 g/dl (14.0-17.9); LYMPHOCYTES # (AUTO) 0.6 X10'3 (1.1-4.8); LYMPHOCYTES % (AUTO) 9.3 % (21-51); MEAN CORPUSCULAR HEMOGLOBIN 33.7 PG (27.0-31.0); MEAN CORPUSCULAR HGB CONC 32.5 g/dL (33.0-36.5); MEAN CORPUSCULAR VOLUME 103.7 FL (78-98); MEAN PLATELET VOLUME 6.7 FL (7.4-10.4); MONOCYTES # (AUTO) 0.6 X10'3 (0-0.9); NEUTROPHILS # (AUTO) 4.9 X10'3 (1.8-7.7); NEUTROPHILS % (AUTO) 78.7 % (42-75); PLATELET COUNT 212 X10'3 (140-440); RED BLOOD COUNT 2.95 X10'6 (4.70-6.10); RED CELL DISTRIBUTION WIDTH 16.9 % (11.5-14.5); WHITE BLOOD COUNT 6.2 X10'3 (4.5-11.0)
--- NOTE | 2019-01-31 06:19 | NUR ---
Problems reprioritized. Patient report given, questions answered & plan of care reviewed with HUMAIRA Villatoro. Pt is awake and in stable condition
--- NOTE | 2019-01-31 06:33 | NUR ---
Patient in room PCU 3012. I have received report from HUMAIRA Lund and had the opportunity to ask questions and assume patient care. Patient is currently sleeping in bed, bed locked and low, call light in reach. Denies acute distress, will continue to monitor.
[2019-01-31 06:56] LABS: ALBUMIN 2.6 G/DL (3.4-5.0); ANION GAP 8 (8-16); BLOOD UREA NITROGEN 32 MG/DL (7-18); BUN/CREATININE RATIO 7.4 (5.4-32.0); CALCIUM 8.4 MG/DL (8.5-10.1); CHLORIDE 100 MMOL/L (99-107); CREATININE 4.31 MG/DL (0.60-1.10); GLUCOSE 80 MG/DL (70-104); MAGNESIUM 2.1 MG/DL (1.5-2.4); PHOSPHORUS 3.9 MG/DL (2.3-4.5); POTASSIUM 4.9 MMOL/L (3.5-5.1); SODIUM 136 MMOL/L (135-145); TOTAL CARBON DIOXIDE 28.3 MMOL/L (24-32); eGFR 13 ML/MIN
[2019-01-31] MEDS: isosorbide mononitrate 30mg tab.SR.24H PO SCH (07:26)
[2019-01-31] MEDS: folic acid/vitamin B complex w/vitamin C 0.8mg tablet PO SCH (07:26)
[2019-01-31] MEDS: furosemide 40mg tablet PO SCH ×2 (07:27→20:31)
[2019-01-31] MEDS: docusate sod 100mg capsule PO SCH ×2 (07:27→20:32)
[2019-01-31] MEDS: aspirin 325mg tablet, delayed-release (Ecotrin) PO SCH (07:27)
[2019-01-31] MEDS: clopidogrel 75mg tablet PO SCH (07:27)
[2019-01-31] MEDS: gabapentin 100mg capsule PO SCH (07:27)
[2019-01-31] MEDS: pantoprazole 40mg Tablet.DR PO SCH (07:28)
[2019-01-31] MEDS: calcium acetate 667mg (PhosLO) capsule PO SCH ×3 (07:34→17:31)
[2019-01-31] MEDS: metolazone 2.5mg tablet PO SCH ×2 (07:34→20:32)
[2019-01-31] MEDS: levoTHYROXINE 112mcg tablet PO SCH (07:34)
[2019-01-31] MEDS: metoprolol tartrate 25mg tablet PO SCH ×2 (07:34→20:34)
[2019-01-31] MEDS: heparin, porcine 5000 units/ml vial SQ SCH ×2 (07:35→20:33)
[2019-01-31] MEDS: ipratropium/albuterol 3ml nebule NEB SCH ×4 (08:12→19:41)
[2019-01-31] MEDS: finasteride 5mg tablet PO SCH (09:23)
[2019-01-31 11:00] VITALS: BP 129/44
[2019-01-31 15:20] VITALS: BP 126/42
[2019-01-31 16:19] LABS: CLARITY,URINE CLEAR (Clear); COLOR,URINE YELLOW (Yellow); GLUCOSE, URINE NEGATIVE (Neg); KETONES,URINE TRACE mg/dl (Neg); LEUKOCYTE ESTERASE ,URINE SMALL (Neg); NITRITES, URINE NEGATIVE (Neg); OCCULT BLOOD,URINE TRACE-INTACT (Neg); PROTEIN,URINE 100 mg/dl (Neg); UROBILINOGEN,URINE 0.2 E.U/dL (0.2-1.0)
[2019-01-31 16:24] LABS: UA COLLECTION TYPE URINAL
[2019-01-31 16:25] LABS: BACTERIA,URINE 1+ /HPF (Neg); MUCUS STRANDS FEW /LPF (Neg); WBC,URINE 30-50 /HPF (0-4)
[2019-01-31 16:26] LABS: SQUAMOUS EPITHELIAL CELL,UR FEW /LPF (FEW)
--- NOTE | 2019-01-31 17:44 | NUR ---
Patient was distressed that some of his belongings were not in his room. Called down to ICU and they said they had brought everythign up yesterday. Called patient's sister and she reported that she had taken his clothes and his oxygen concentrator home with her yesterday.
[2019-01-31 18:00] VITALS: BP 145/52
--- NOTE | 2019-01-31 18:06 | NUR ---
Problems reprioritized. Patient report given, questions answered & plan of care reviewed with HUMAIRA Lund. Patient currently resting in bed, bed locked and low, call light in reach, stable at shift change.
--- NOTE | 2019-01-31 18:10 | NUR ---
Patient in room PCU 3012B. I have received report from HUMAIRA Villatoro and had the opportunity to ask questions and assume patient care. Pt is resting comfortably in bed, A&OX4, 3L of oxygen via NC. Denies, CP, nausea, dizziness. Will continue to monitor
[2019-01-31] MEDS: tamsulosin 0.4mg capsule PO SCH (20:32)
[2019-01-31 22:00] VITALS: BP 144/61
[2019-02-01 02:00] VITALS: BP 128/56
[2019-02-01 04:13] LABS: BASOPHILS # (AUTO) 0.1 X10'3 (0-0.2); BASOPHILS % (AUTO) 0.9 % (0-1); EOSINOPHILS # (AUTO) 0.2 X10'3 (0-0.9); EOSINOPHILS % (AUTO) 2.7 % (0-6); HEMATOCRIT 31.3 % (42.0-52.0); HEMOGLOBIN 9.9 g/dl (14.0-17.9); LYMPHOCYTES # (AUTO) 0.6 X10'3 (1.1-4.8); LYMPHOCYTES % (AUTO) 9.6 % (21-51); MEAN CORPUSCULAR HEMOGLOBIN 32.8 PG (27.0-31.0); MEAN CORPUSCULAR HGB CONC 31.7 g/dL (33.0-36.5); MEAN CORPUSCULAR VOLUME 103.3 FL (78-98); MEAN PLATELET VOLUME 6.5 FL (7.4-10.4); MONOCYTES # (AUTO) 0.6 X10'3 (0-0.9); MONOCYTES % (AUTO) 10.1 % (2-12); NEUTROPHILS # (AUTO) 4.5 X10'3 (1.8-7.7); NEUTROPHILS % (AUTO) 76.7 % (42-75); PLATELET COUNT 219 X10'3 (140-440); RED BLOOD COUNT 3.03 X10'6 (4.70-6.10); WHITE BLOOD COUNT 5.8 X10'3 (4.5-11.0)
[2019-02-01 04:26] LABS: ALBUMIN 2.7 G/DL (3.4-5.0); ANION GAP 7 (8-16); BLOOD UREA NITROGEN 49 MG/DL (7-18); BUN/CREATININE RATIO 8.6 (5.4-32.0); CALCIUM 8.5 MG/DL (8.5-10.1); CHLORIDE 97 MMOL/L (99-107); GLUCOSE 93 MG/DL (70-104); MAGNESIUM 2.4 MG/DL (1.5-2.4); POTASSIUM 5.1 MMOL/L (3.5-5.1); SODIUM 131 MMOL/L (135-145); eGFR 10 ML/MIN
[2019-02-01 06:00] VITALS: BP 149/50
--- NOTE | 2019-02-01 06:46 | NUR ---
Problems reprioritized. Patient report given, questions answered & plan of care reviewed with HUMAIRA Reyna. Pt stable at shift change
--- NOTE | 2019-02-01 07:01 | NUR ---
Patient in room PCU 3012. I have received report from HUMAIRA Lund and had the opportunity to ask questions and assume patient care.
[2019-02-01] MEDS: ipratropium/albuterol 3ml nebule NEB SCH ×4 (07:36→20:35)
[2019-02-01] MEDS: aspirin 325mg tablet, delayed-release (Ecotrin) PO SCH (08:58)
[2019-02-01] MEDS: isosorbide mononitrate 30mg tab.SR.24H PO SCH (08:58)
[2019-02-01] MEDS: docusate sod 100mg capsule PO SCH ×2 (08:58→20:55)
[2019-02-01] MEDS: levoTHYROXINE 112mcg tablet PO SCH (08:58)
[2019-02-01] MEDS: folic acid/vitamin B complex w/vitamin C 0.8mg tablet PO SCH (08:58)
[2019-02-01] MEDS: clopidogrel 75mg tablet PO SCH (08:58)
[2019-02-01] MEDS: pantoprazole 40mg Tablet.DR PO SCH (08:58)
[2019-02-01] MEDS: furosemide 40mg tablet PO SCH ×2 (08:59→20:55)
[2019-02-01] MEDS: metolazone 2.5mg tablet PO SCH ×2 (08:59→20:59)
[2019-02-01] MEDS: heparin, porcine 5000 units/ml vial SQ SCH ×2 (08:59→20:54)
[2019-02-01] MEDS: calcium acetate 667mg (PhosLO) capsule PO SCH ×3 (08:59→17:25)
[2019-02-01] MEDS: metoprolol tartrate 25mg tablet PO SCH ×2 (09:00→20:55)
[2019-02-01] MEDS: finasteride 5mg tablet PO SCH (09:06)
--- NOTE | 2019-02-01 09:39 | NUR ---
per emergency telecommunications dispatcher pt went in to possible afib/ aflutter checked on pt and ekg done, pt c/o 09/03 bilateral chest pressure bp 163/77 hr 111 o2 94%ra a few minutes afterward pt went back in to SR 70's RAH Vera aware. no orders received
--- NOTE | 2019-02-01 10:03 | NUR ---
TRINH SNYDER AND REYNA JOSEPH REVIEWED EKG'S, NO ORDERS RECEIVED
[2019-02-01] MEDS ORDERED: lactulose 20gm/30ml cup PO PRN (10:05)
--- NOTE | 2019-02-01 10:35 | NUR ---
CALLED DR. SALGADO'S OFFICE ANSWERING SERVICE TO NOTIFY HIM THAT PT IS HERE PER RAH YANG
[2019-02-01 11:00] VITALS: BP 157/53
[2019-02-01 15:00] VITALS: BP 141/48
--- NOTE | 2019-02-01 16:15 | NUR ---
SPOKE WITH TRINH PEDRO SMALL [place]UK WBC 30-50. SHE WILL REVIEW
[2019-02-01 16:46] LABS: HEMOGLOBIN A1C 5.7 % (4.5-6.2)
--- NOTE | 2019-02-01 18:29 | NUR ---
Problems reprioritized. Patient report given, questions answered & plan of care reviewed with HUMAIRA ALVA.
[2019-02-01 19:00] VITALS: BP 149/61
[2019-02-01] MEDS ORDERED: carVEDilol 3.125mg tablet PO SCH (20:00)
[2019-02-01] MEDS: tamsulosin 0.4mg capsule PO SCH (20:55)
[2019-02-01 23:00] VITALS: BP 128/47
[2019-02-02 01:00] VITALS: BP 139/47
[2019-02-02 03:00] VITALS: BP 106/43
[2019-02-02 06:00] VITALS: BP 154/51
--- NOTE | 2019-02-02 06:37 | NUR ---
Patient in room PCU 3012. I have received report from HUMAIRA Lou and had the opportunity to ask questions and assume patient care. Pt was awake, but fell back to sleep shortly. In no apparent distress. Will continue to monitor.
[2019-02-02] MEDS: ipratropium/albuterol 3ml nebule NEB SCH ×2 (07:47→12:25)
[2019-02-02] MEDS: levoTHYROXINE 112mcg tablet PO SCH (08:25)
[2019-02-02] MEDS: calcium acetate 667mg (PhosLO) capsule PO SCH ×2 (08:25→13:47)
[2019-02-02] MEDS ORDERED: heparin 1,000unit/ml 10ml vial 10 ML IV ONE (08:26)
[2019-02-02] MEDS: furosemide 40mg tablet PO SCH (08:26)
[2019-02-02] MEDS: docusate sod 100mg capsule PO SCH (08:26)
[2019-02-02] MEDS: pantoprazole 40mg Tablet.DR PO SCH (08:26)
[2019-02-02] MEDS: metoprolol tartrate 25mg tablet PO SCH (08:26)
[2019-02-02] MEDS: aspirin 325mg tablet, delayed-release (Ecotrin) PO SCH (08:26)
[2019-02-02] MEDS: isosorbide mononitrate 30mg tab.SR.24H PO SCH (08:26)
[2019-02-02] MEDS: finasteride 5mg tablet PO SCH (08:26)
[2019-02-02] MEDS: clopidogrel 75mg tablet PO SCH (08:27)
[2019-02-02] MEDS: metolazone 2.5mg tablet PO SCH (08:27)
[2019-02-02] MEDS: folic acid/vitamin B complex w/vitamin C 0.8mg tablet PO SCH (08:27)
[2019-02-02] MEDS: heparin, porcine 5000 units/ml vial SQ SCH (08:28)
[2019-02-02] MEDS ORDERED: albumin (human) 25% 100ml IV 100 ML IV PRN (08:30)
[2019-02-02] MEDS ORDERED: heparin 1,000 units/ml 10ml inj IV ONE (08:30)
[2019-02-02] MEDS ORDERED: epoetin 20,000 units/ml inj IV ONE (08:30)
[2019-02-02 09:00] LABS: BASOPHILS # (AUTO) 0.1 X10'3 (0-0.2); BASOPHILS % (AUTO) 0.8 % (0-1); EOSINOPHILS # (AUTO) 0.2 X10'3 (0-0.9); HEMATOCRIT 31.8 % (42.0-52.0); HEMOGLOBIN 10.2 g/dl (14.0-17.9); LYMPHOCYTES # (AUTO) 0.4 X10'3 (1.1-4.8); LYMPHOCYTES % (AUTO) 7.2 % (21-51); MEAN CORPUSCULAR HEMOGLOBIN 33.1 PG (27.0-31.0); MEAN CORPUSCULAR HGB CONC 32.1 g/dL (33.0-36.5); MEAN CORPUSCULAR VOLUME 103.1 FL (78-98); MEAN PLATELET VOLUME 6.2 FL (7.4-10.4); MONOCYTES # (AUTO) 0.5 X10'3 (0-0.9); NEUTROPHILS # (AUTO) 4.9 X10'3 (1.8-7.7); PLATELET COUNT 240 X10'3 (140-440); RED BLOOD COUNT 3.08 X10'6 (4.70-6.10); WHITE BLOOD COUNT 6.1 X10'3 (4.5-11.0)
[2019-02-02 09:12] LABS: ALBUMIN 2.8 G/DL (3.4-5.0); ANION GAP 9 (8-16); BLOOD UREA NITROGEN 66 MG/DL (7-18); BUN/CREATININE RATIO 9.3 (5.4-32.0); CALCIUM 8.4 MG/DL (8.5-10.1); CHLORIDE 92 MMOL/L (99-107); CREATININE 7.06 MG/DL (0.60-1.10); GLUCOSE 103 MG/DL (70-104); MAGNESIUM 2.4 MG/DL (1.5-2.4); PHOSPHORUS 5.8 MG/DL (2.3-4.5); SODIUM 127 MMOL/L (135-145); TOTAL CARBON DIOXIDE 25.7 MMOL/L (24-32); eGFR 7 ML/MIN
--- NOTE | 2019-02-02 09:28 | NUR ---
Critical K of 6.0. Called Dr Haynes, he answered and informed me he was in the middle of a code and that he would call back. Pt is going to be dialyzed today. Addendum: 02/02/19 at 0945 by Anai Osorio RN Pt is currently being dialyzed.
[2019-02-02 11:00] VITALS: BP 92/46
== END 2019-02-02 15:20 | DRG 291 ==
LOC: ICU 2S 09:53 → PCU 3S 16:50
PROVIDERS: ADMIT Internal Medicine Critical Care Medicine; ATTEND Internal Medicine Cardiovascular Disease
PROC: 5A1D70Z Performance of Urinary Filtration, Intermittent, Less than 6 Hours Per Day (ICD-10-PCS; 2019-01-30)
PROC: 5A1D70Z Performance of Urinary Filtration, Intermittent, Less than 6 Hours Per Day (ICD-10-PCS; principal; 2019-02-02)
DX: I13.2 Hypertensive heart and chronic kidney disease with heart failure and with stage 5 chronic kidney disease, or end stage renal disease (principal); N18.6 End stage renal disease; I50.9 Heart failure, unspecified; E11.22 Type 2 diabetes mellitus with diabetic chronic kidney disease; E87.70 Fluid overload, unspecified; J44.9 Chronic obstructive pulmonary disease, unspecified; Z79.01 Long term (current) use of anticoagulants; Z99.2 Dependence on renal dialysis; Z79.899 Other long term (current) drug therapy; Z79.82 Long term (current) use of aspirin; Z80.9 Family history of malignant neoplasm, unspecified; Z95.1 Presence of aortocoronary bypass graft
CPT/HCPCS: 36415; 71045; 76937; 80048; 80053; 81001; 82948; 83036; 83605; 83735; 83880; 84100; 84145; 84443; 85025; 85610; 85730; 87040; 87070; 87081; 87088; 93005; 93306; 94640; 94760; 97116; 97161; 97530; G0257; G0378; J1644; Q4081

== ENCOUNTER 2020-05-10 11:31 | Day surgery (SDC) | payer MEDICARE, BC ==
[~2020-05-10] VITALS: Ht 177.8 cm; Wt 88.8 kg
[~2020-05-10 11:31] MED LIST changes: -ATOR10TA70 PO; -CALC667C5 PO; -CARV3.123 PO; +FINA5TAB11 PO; +FURO-149 PO; +GUAI600T45 PO; -IPRA4AER IH; -LEVO250T58 PO; +METO25TA6 PO; -MULT1TAB74 PO; -OMEP10CA5 PO; +OMEP20TA5 PO; +PHO667C PO; -SENN-162 PO; -SEVE800T7 PO; -SPIIN IH; -TERA1CAP4 PO; -TRAZ-251 PO; +ZAR2.5T PO
[2020-05-10 13:10] VITALS: BP 161/75
[2020-05-10] MEDS ORDERED: iohexol 300mg/ml 100ml inj. ONE ×2 (13:10→16:25)
[2020-05-10] MEDS ORDERED: LIDOcaine 1%/PF 5ML 10 MG/ML VIAL ONE (13:10)
[2020-05-10] MEDS ORDERED: ASPI81TA52 PO (13:15)
[2020-05-10] MEDS ORDERED: normal saline 1000ml 1,000 ML IV PRN (13:15)
[2020-05-10] MEDS ORDERED: PANT40TA54 PO (13:21)
[2020-05-10] MEDS ORDERED: ACETAMINOPHEN PO (13:35)
[2020-05-10] MEDS ORDERED: ATOR20TA PO (13:36)
[2020-05-10] MEDS ORDERED: DOCU100C40 PO (13:37)
[2020-05-10] MEDS ORDERED: BISA10SU60 RC (13:38)
[2020-05-10] MEDS ORDERED: ISOS30TA6 PO (13:39)
[2020-05-10] MEDS ORDERED: MELA1TAB28 PO (13:40)
[2020-05-10] MEDS ORDERED: POLY17PO26 PO (13:41)
[2020-05-10] MEDS ORDERED: RANO500T3 PO (13:42)
[2020-05-10] MEDS ORDERED: VIT1TABL50 PO (13:42)
[2020-05-10] MEDS ORDERED: TIOT18CA3 INH (13:45)
[2020-05-10 14:16] LABS: BASOPHILS % (AUTO) 0.6 % (0-1); EOSINOPHILS % (AUTO) 0.2 % (0-6); HEMATOCRIT 35.1 % (42.0-52.0); LYMPHOCYTES # (AUTO) 0.5 X10'3 (1.1-4.8); LYMPHOCYTES % (AUTO) 7.2 % (21-51); MEAN CORPUSCULAR HEMOGLOBIN 32.2 PG (27.0-31.0); MEAN CORPUSCULAR HGB CONC 31.3 g/dL (33.0-36.5); MEAN CORPUSCULAR VOLUME 102.6 FL (78-98); MEAN PLATELET VOLUME 6.5 FL (7.4-10.4); MONOCYTES # (AUTO) 0.5 X10'3 (0-0.9); MONOCYTES % (AUTO) 7.4 % (2-12); NEUTROPHILS # (AUTO) 5.9 X10'3 (1.8-7.7); NEUTROPHILS % (AUTO) 84.6 % (42-75); PLATELET COUNT 417 X10'3 (140-440); RED BLOOD COUNT 3.42 X10'6 (4.70-6.10); RED CELL DISTRIBUTION WIDTH 18.4 % (11.5-14.5)
[2020-05-10 14:24] LABS: ALBUMIN 2.4 G/DL (3.4-5.0); ANION GAP 9 (8-16); BLOOD UREA NITROGEN 34 MG/DL (7-18); BUN/CREATININE RATIO 8.8 (5.4-32.0); CALCIUM 9.6 MG/DL (8.5-10.1); CHLORIDE 97 MMOL/L (99-107); CREATININE 3.86 MG/DL (0.60-1.10); GLUCOSE 95 MG/DL (70-104); POTASSIUM 3.5 MMOL/L (3.5-5.1); SODIUM 137 MMOL/L (135-145); TOTAL CARBON DIOXIDE 30.9 MMOL/L (24-32); eGFR 15 ML/MIN
[2020-05-10] MEDS ORDERED: heparin 1,000 UNITS/NS 500ml 500 ML ONE (14:57)
[2020-05-10] MEDS ORDERED: fentaNYL/PF 50MCG/1 ML 2ML syringe ONE (14:57)
[2020-05-10] MEDS ORDERED: midazolam 2 mg/2 ml injection ONE (14:57)
[2020-05-10] MEDS ORDERED: hydrALAZINE 20mg/ml inj. IV ONE ×2 (15:35→16:07)
[2020-05-10] MEDS ORDERED: diphenhydrAMINE 50 mg/ml inj ONE (15:49)
[2020-05-10 16:58] VITALS: BP 160/74
[2020-05-10 17:15] VITALS: BP 147/74
[2020-05-10 17:30] VITALS: BP 151/62
[2020-05-10 17:45] VITALS: BP 153/65
[2020-05-10 18:00] VITALS: BP 144/93
== END 2020-05-10 18:30 ==
LOC: SSTAY O 11:31
PROVIDERS: ATTEND Radiology Vascular & Interventional Radiology
DX: T82.858A Stenosis of other vascular prosthetic devices, implants and grafts, initial encounter (principal); I25.10 Atherosclerotic heart disease of native coronary artery without angina pectoris; N18.6 End stage renal disease; I50.9 Heart failure, unspecified; Z79.82 Long term (current) use of aspirin; Z79.899 Other long term (current) drug therapy; Z79.01 Long term (current) use of anticoagulants; Z98.890 Other specified postprocedural states; Y83.2 Surgical operation with anastomosis, bypass or graft as the cause of abnormal reaction of the patient, or of later complication, without mention of misadventure at the time of the procedure; Y92.89 Other specified places as the place of occurrence of the external cause
CPT/HCPCS: 36415; 36902; 76937; 80048; 85025; 99152; 99153; C1725; C1769; C1894; J0360; J1200; J1644; J2250; J3010; Q9967